=== PATIENT | male | born 1965 | race Caucasian/White ===

== ENCOUNTER 2020-06-09 22:03 | Inpatient (IN) | payer MEDICARE, OTHER ==
[~2020-06-09] VITALS: Ht 182.9 cm; Wt 77.1 kg
[~2020-06-09 22:03] MED LIST: ALBUTEROL2.5 MG/3 M INH; NEBULIZER UNIT; PREDNISONE20 MG PO
[2020-06-10 00:57] LABS: HEMOGLOBIN 14.6 gm/dl (14.0-17.5); RED BLOOD COUNT 4.74 M/UL (4.20-5.50); WHITE BLOOD COUNT 14.5 K/UL (4.5-11.0)
[2020-06-10 01:07] LABS: BUN/CREATININE RATIO 17 (0-10)
[2020-06-10] MEDS ORDERED: PROAIR DIGIHAL90 MCG INH (01:23)
[2020-06-10] MEDS ORDERED: DILANTIN 100 M100 MG PO ×2 (01:24)
[2020-06-10] MEDS ORDERED: KLONOPIN TAB 00.5 MG PO (01:25)
[2020-06-11 05:56] LABS: HEMOGLOBIN 11.6 gm/dl (14.0-17.5); RED BLOOD COUNT 3.8 M/UL (4.20-5.50); WHITE BLOOD COUNT 9.4 K/UL (4.5-11.0)
[2020-06-11 06:06] LABS: BUN/CREATININE RATIO 18 (0-10)
[2020-06-12 03:46] LABS: HEMOGLOBIN 11.3 gm/dl (14.0-17.5); RED BLOOD COUNT 3.71 M/UL (4.20-5.50); WHITE BLOOD COUNT 7.8 K/UL (4.5-11.0)
[2020-06-12 04:21] LABS: BUN/CREATININE RATIO 18 (0-10)
[2020-06-13 04:08] LABS: HEMOGLOBIN 11.6 gm/dl (14.0-17.5); RED BLOOD COUNT 3.77 M/UL (4.20-5.50); WHITE BLOOD COUNT 7.6 K/UL (4.5-11.0)
[2020-06-13 04:30] LABS: BUN/CREATININE RATIO 16 (0-10)
[2020-06-13] MEDS ORDERED: LORTAB 7.5-3251 EACH PO (08:45)
[2020-06-13] MEDS ORDERED: COLACE 100MG C100 MG PO (08:45)
[2020-06-13] MEDS ORDERED: ASPIRIN EC325 MG PO (08:45)
[2020-06-13] MEDS ORDERED: HYDROCODON-ACE1 EAC4 PO (08:47)
[2020-06-13] MEDS ORDERED: NORCO 10-325 T1 EACH PO (11:29)
== END 2020-06-13 17:24 | disposition home health service (06) | DRG 481 ==
LOC: ER1 22:03 → M/S 06-10 00:19 → CDU 06-10 00:19 → M/S 06-10 01:23
PROVIDERS: Emergency Medicine; Orthopaedic Surgery; ADMIT Internal Medicine
PROC: 0QS704Z Reposition Left Upper Femur with Internal Fixation Device, Open Approach (ICD-10-PCS; principal; 2020-06-10 11:00)
DX: S72.092A Other fracture of head and neck of left femur, initial encounter for closed fracture (principal); R65.10 Systemic inflammatory response syndrome (SIRS) of non-infectious origin without acute organ dysfunction; E87.1 Hypo-osmolality and hyponatremia; W01.0XXA Fall on same level from slipping, tripping and stumbling without subsequent striking against object, initial encounter; Z20.828 Contact with and (suspected) exposure to other viral communicable diseases; F41.9 Anxiety disorder, unspecified; J44.9 Chronic obstructive pulmonary disease, unspecified; E78.5 Hyperlipidemia, unspecified; Z86.14 Personal history of Methicillin resistant Staphylococcus aureus infection; Z87.891 Personal history of nicotine dependence; Z82.49 Family history of ischemic heart disease and other diseases of the circulatory system; G40.909 Epilepsy, unspecified, not intractable, without status epilepticus
CPT/HCPCS: 36415; 73502; 76000; 80048; 80053; 85025; 85027; 85610; 85730; 93005; 94640; 94664; 94760; 96374; 96375; 96376; 97110-GP-CQ; 97116-GP-CQ; 97162; 97165; 97535; 99284; C1713; J0690; J1100; J1170; J1885; J2001; J2250; J2270; J2405; J2704; J3010; J7120; U0002

== ENCOUNTER → 2020-06-22 | Outpatient (CLI) | payer MEDICARE, OTHER ==
[~2020-06-22] MED LIST changes: +ASPIRIN EC325 MG PO; +COLACE 100MG C100 MG PO; +DILANTIN 100 M100 MG PO; +HYDROCODON-ACE1 EAC4 PO; +KLONOPIN TAB 00.5 MG PO; +LORTAB 7.5-3251 EACH PO; +NORCO 10-325 T1 EACH PO; +PROAIR DIGIHAL90 MCG INH
== END ==
LOC: KOH-I 06-05 09:00
DX: Z12.2 Encounter for screening for malignant neoplasm of respiratory organs (principal); F17.210 Nicotine dependence, cigarettes, uncomplicated; J44.9 Chronic obstructive pulmonary disease, unspecified; R91.8 Other nonspecific abnormal finding of lung field
CPT/HCPCS: 71271

== ENCOUNTER 2021-02-14 10:39 | Emergency (ER) | payer MEDICARE, OTHER, MEDICAID ==
[~2021-02-14] VITALS: Ht 182.9 cm; Wt 78.5 kg
[2021-02-14 13:30] LABS: HEMOGLOBIN 14.9 gm/dl (14.0-17.5); RED BLOOD COUNT 4.83 M/UL (4.20-5.50); WHITE BLOOD COUNT 8.5 K/UL (4.5-11.0)
[2021-02-14 13:58] LABS: BUN/CREATININE RATIO 13 (0-10)
[2021-02-14] MEDS ORDERED: ZOFRAN4 MG PO (19:24)
== END 2021-02-14 21:51 | disposition home or self-care (01) ==
LOC: ER1 10:39
PROVIDERS: Physician Assistant
DX: Z23 Encounter for immunization (principal); U07.1 COVID-19; E86.0 Dehydration; J44.9 Chronic obstructive pulmonary disease, unspecified; Z79.899 Other long term (current) drug therapy
CPT/HCPCS: 71045; 80053; 81001; 83690; 85025; 99284; J7030; M0243; Q9967; U0002

== ENCOUNTER 2021-10-19 12:01 | Inpatient (IN) | payer MEDICARE, OTHER ==
[~2021-10-19] VITALS: Ht 182.9 cm; Wt 80.3 kg
[~2021-10-19 12:01] MED LIST changes: +ZOFRAN4 MG PO
[2021-10-19 12:22] LABS: RED BLOOD COUNT 3.94 M/UL (4.20-5.50); WHITE BLOOD COUNT 13.1 K/UL (4.5-11.0)
[2021-10-19 13:02] LABS: BUN/CREATININE RATIO 29 (0-10)
[2021-10-19 16:08] LABS: BUN/CREATININE RATIO 26 (0-10)
[2021-10-19 20:25] LABS: BUN/CREATININE RATIO 25 (0-10)
[2021-10-20 03:40] LABS: HEMOGLOBIN 10.6 gm/dl (14.0-17.5); RED BLOOD COUNT 3.53 M/UL (4.20-5.50); WHITE BLOOD COUNT 17.1 K/UL (4.5-11.0)
[2021-10-20] MEDS ORDERED: PHENYTOIN SODI100 MG PO (10:35)
[2021-10-20] MEDS ORDERED: TRELEGY ELLIPT1 EAC1 INH (10:36)
--- NOTE | 2021-10-21 00:58 | NUR ---
2215 NOTIFIED OF PATIENTS REFUSAL TO WEAR BIPAP, ABG RESULTS GIVEN TO MD, ORDER RECIEVED FOR PRECEDEX IV LOW DOSE AND TO TRY TO GET THE PATIENT TO WEAR BIPAP AND NASAL CANNULA ALTERNATING. 0030 PT STATES HE FEELS HIS BREATHING IS WORSE. STILL REFUSES TO WEAR THE BIPAP. SAID IF NEEDED TO INTUBATE HIM FOR SEVEN DAYS AND THEN DISCONTINUE
[2021-10-21 05:22] LABS: BUN/CREATININE RATIO 30 (0-10)
[2021-10-21 05:29] LABS: HEMOGLOBIN 12.6 gm/dl (14.0-17.5); RED BLOOD COUNT 4.15 M/UL (4.20-5.50); WHITE BLOOD COUNT 37.2 K/UL (4.5-11.0)
[2021-10-21 09:28] LABS: HEMOGLOBIN 12.4 gm/dl (14.0-17.5); RED BLOOD COUNT 4.05 M/UL (4.20-5.50)
[2021-10-21 09:29] LABS: WHITE BLOOD COUNT 36.3 K/UL (4.5-11.0)
[2021-10-21 11:33] LABS: CANDIDA ALBICANS Not Detected (Negative); CANDIDA KRUSEI Not Detected (Negative); CANDIDA TROPICALIS Not Detected (Negative); ESCHERICHIA COLI Not Detected (Negative); HAEMOPHILUS INFLUENZAE Not Detected (Negative); KLEBSIELLA OXYTOCA Not Detected (Negative); KLEBSIELLA PNEUMONIAE Not Detected (Negative); KPC-CARBAPENEM-RESISTANCE GENE Not Detected (Negative); PROTEUS Not Detected (Negative); PSEUDOMONAS AERUGINOSA Not Detected (Negative); SERRATIA MARCESANS Not Detected (Negative); STAPHYLOCOCCUS AUREUS Not Detected (Negative); STREP AGALACTIAE (GROUP B) Not Detected (Negative); STREP PYOGENES (GROUP A) Not Detected (Negative); STREPTOCOCCUS Not Detected (Negative); vanA/B (VANCOMYCIN RESIST GENE Not Detected (Negative)
[2021-10-21 12:48] LABS: STAPHYLOCOCCUS DETECTED (Negative)
[2021-10-22 04:42] LABS: HEMOGLOBIN 11.4 gm/dl (14.0-17.5); RED BLOOD COUNT 3.75 M/UL (4.20-5.50)
[2021-10-22 04:47] LABS: WHITE BLOOD COUNT 55.9 K/UL (4.5-11.0)
[2021-10-22 09:04] LABS: BUN/CREATININE RATIO 29 (0-10)
[2021-10-23 03:00] LABS: HEMOGLOBIN 10.5 gm/dl (14.0-17.5); RED BLOOD COUNT 3.45 M/UL (4.20-5.50)
[2021-10-23 03:07] LABS: WHITE BLOOD COUNT 43.4 K/UL (4.5-11.0)
[2021-10-24 15:11] LABS: HEMATOCRIT 33.3 % (37.5-51.0)
== END 2021-10-23 12:07 | disposition short-term general hospital (02) | DRG 208 ==
LOC: ER1 12:01 → CDU 17:26 → CCU 17:26
PROVIDERS: Emergency Medicine; Internal Medicine; Internal Medicine Nephrology; Internal Medicine Pulmonary Disease; Physician Assistant; Registered Nurse; ADMIT Internal Medicine
PROC: B24BZZZ Ultrasonography of Heart with Aorta (ICD-10-PCS; principal; 2021-10-20)
PROC: 5A09357 Assistance with Respiratory Ventilation, Less than 24 Consecutive Hours, Continuous Positive Airway Pressure (ICD-10-PCS; 2021-10-20)
PROC: 5A1945Z Respiratory Ventilation, 24-96 Consecutive Hours (ICD-10-PCS; 2021-10-21)
PROC: 5A09357 Assistance with Respiratory Ventilation, Less than 24 Consecutive Hours, Continuous Positive Airway Pressure (ICD-10-PCS; 2021-10-21)
PROC: 0BH17EZ Insertion of Endotracheal Airway into Trachea, Via Natural or Artificial Opening (ICD-10-PCS; 2021-10-21)
DX: J15.9 Unspecified bacterial pneumonia (principal); R65.21 Severe sepsis with septic shock; N17.0 Acute kidney failure with tubular necrosis; Z20.822 Contact with and (suspected) exposure to COVID-19; Z66 Do not resuscitate; A41.9 Sepsis, unspecified organism; G93.41 Metabolic encephalopathy; J80 Acute respiratory distress syndrome; I31.3 Pericardial effusion (noninflammatory); E87.2 Acidosis; E22.2 Syndrome of inappropriate secretion of antidiuretic hormone; F11.20 Opioid dependence, uncomplicated; R73.9 Hyperglycemia, unspecified; D64.9 Anemia, unspecified; G40.909 Epilepsy, unspecified, not intractable, without status epilepticus; F41.9 Anxiety disorder, unspecified; F17.210 Nicotine dependence, cigarettes, uncomplicated; E88.09 Other disorders of plasma-protein metabolism, not elsewhere classified; R41.9 Unspecified symptoms and signs involving cognitive functions and awareness; J43.9 Emphysema, unspecified; E87.8 Other disorders of electrolyte and fluid balance, not elsewhere classified; Z96.698 Presence of other orthopedic joint implants; R63.1 Polydipsia; E86.1 Hypovolemia; T73.0XXA Starvation, initial encounter; Z98.890 Other specified postprocedural states
CPT/HCPCS: ECHO; 31500; 36415; 36600; 70450; 71045; 80048; 80053; 80202; 80307; 81001; 82436; 82533; 82550; 82553; 82570; 82607; 82728; 82747; 82803; 83540; 83550; 83605; 83921; 83935; 84133; 84295; 84300; 84439; 84443; 84484; 85025; 85027; 86140; 87040; 87070; 87077; 87081; 87150; 87186; 87205; 93005; 93306; 93308; 94002; 94003; 94640; 94660; 94664; 94760; 95819; 96374; 96375; 99285; C1751; C9113; G0480; J1165; J1650; J2250; J2370; J2543; J2704; J2920; J2930; J3370; J3486; J7030; J7040; J7050; J7070; J7131; P9047; Q9967; U0002